=== PATIENT | female | born 1955 | race Caucasian/White ===

== ENCOUNTER 2019-01-10 00:06 | Outpatient (CLI) | payer MEDICARE ==
[2019-01-10 11:25] LABS: #Basophils 0.1 thou/uL (0.0-0.2); #Eosinphils 0.1 thou/uL (0.0-0.7); #Lymphocytes 3.3 thou/uL (1.20-3.40); #Monocytes 0.5 thou/uL (0.11-0.59); #Neutrophils 6.2 thou/uL (1.40-6.50); %Basophils 0.8 % (0.0-1.0); %Eosinophils 1.2 % (0.0-10.0); %Lymphocytes 32.4 % (21.0-51.0); %Monocytes 4.9 % (0.0-10.0); %Neutrophils 60.8 % (42.0-75.0); Hemoglobin 14.4 g/dL (12.0-16.0); Mean Corpuscular HGB CONC 31.9 g/dL (32.0-36.0); Mean Corpuscular Hemoglobin 27.5 pg (27.0-31.0); Mean Corpuscular Volume 86.3 fL (78.0-98.0); Platelet Count 256 thou/uL (130-400); RBC Distribution Width 14.1 % (11.5-14.5); Red Blood Cell (RBC) Count 5.23 mill/uL (4.20-5.40); White Blood Cell (WBC) Count 10.2 thou/uL (4.8-10.8)
[2019-01-10 11:51] LABS: Anion Gap 13 mmol/L (10-20); BUN (Urea Nitrogen) 11 mg/dL (9.8-20.1); Calc. Creatinine Clearance 0 mL/min (70-130); Calcium 10.3 mg/dL (7.8-10.44); Carbon Dioxide 28 mmol/L (23-31); Chloride 102 mmol/L (98-107); Estimated GFR-MDRD 76; Glucose 81 mg/dL (80-115); Potassium 4.6 mmol/L (3.5-5.1); Sodium 138 mmol/L (136-145)
== END 2019-01-10 00:07 | disposition home or self-care (01) ==
LOC: LABBT 00:06
PROVIDERS: ATTEND Surgery
DX: Z01.818 Encounter for other preprocedural examination (principal); K43.2 Incisional hernia without obstruction or gangrene
CPT/HCPCS: 80048; 85025; 93005; 93010

== ENCOUNTER 2019-01-13 05:52 | Day surgery (SDC) | payer MEDICARE ==
[2019-01-10 10:38] VITALS: BMI 39.4
[2019-01-13] MEDS ORDERED: Fentanyl 100 MCG/2 ML VIAL ONE ×2 (06:38→09:05)
[2019-01-13] MEDS ORDERED: Midazolam HCl 2 mg/2 ml Vial ONE ×2 (06:38→06:56)
[2019-01-13] MEDS ORDERED: Bupivacaine/Epinephrine 0.25% 30 ML VIAL ONE (07:18)
[2019-01-13] MEDS ORDERED: Albuterol Sulfate 1.25 MG/3 ML NEB ONE (09:45)
[2019-01-13] MEDS ORDERED: Ondansetron PF 4 MG/2 ML Vial ONE (10:00)
[2019-01-13] MEDS ORDERED: Ketorolac Tromethamine 30 MG/ML VIAL ONE (10:00)
[2019-01-13] MEDS ORDERED: Glycopyrrolate 0.2 MG/ML 5 ML SYRINGE ONE (10:00)
[2019-01-13] MEDS ORDERED: Rocuronium Bromide 10 MG/ML (10ML VIAL) ONE (10:00)
[2019-01-13] MEDS ORDERED: Dexamethasone 20 MG/5 ML VIAL ONE (10:00)
[2019-01-13] MEDS ORDERED: PHENYLEPHRINE-NS 100 MCG/ML 10 ML SYRINGE ONE (10:00)
[2019-01-13] MEDS ORDERED: PROPOFOL 200 MG/20 ML VIAL ONE (10:00)
--- NOTE | 2019-01-13 12:46 | OP ---
DATE OF PROCEDURE: 01/13/2019 PREOPERATIVE DIAGNOSIS: Incisional hernia, multiple. POSTOPERATIVE DIAGNOSIS: Incisional hernia, multiple. PROCEDURE PERFORMED: Laparoscopic da Davin incisional hernia repair with mesh, Ventralex ST 10 x 15 cm. ANESTHESIA: General. ESTIMATED BLOOD LOSS: Minimal. COMPLICATIONS: None. SPECIMENS: None. FINDINGS: Multiple hernias. DESCRIPTION OF PROCEDURE: The patient was taken to the operating room and laid supine on the operating room table. After general anesthetic was obtained, a Devlin was placed. The abdomen was prepped and draped in a sterile fashion. Left subcostal 5-mm Optiview trocar was placed in usual fashion and high-flow pneumoperitoneum was obtained. Left and right abdominal robot 8 trocars were placed and the 5-mm subcostal port switched out to an 11 mm balloon port. All ports were docked to the robot. The adhesions were all taken down and all the hernias were reduced. There was one large wound near the umbilicus, one medium size, one above that. A few small ones superior to that as well. #1 V-Loc was used to primarily close all the defects together. This needle was cut with a small amount of suture remaining. A 10 x 15 cm Ventralex mesh was brought into the sterile field and labelled on its nonadherent side and placed into the abdominal cavity. The exposed mesh portion was placed up against the posterior fascia. The mesh was held up against the posterior abdominal wall using the #1 V-Loc needle. A 2-0 V-Loc was used to sew the mesh along its periphery to the posterior fascia, 2-0 V-Loc was used to do this. All defects were completely closed and completely covered with the overlap of mesh. All needles were removed from the abdomen. There was no bleeding or injury to any intraabdominal structures. All ports were removed under camera visualization after local anesthetic was applied. There was no bleeding. Pneumoperitoneum was let down. 4-0 Monocryl and Dermabond were used to close all the skin incisions. The patient was sent to Recovery in stable condition. All instrument counts, needle counts, and lap counts were correct. Job ID: [id number]
== END 2019-01-13 11:25 | disposition home or self-care (01) ==
LOC: SDC 05:52
PROVIDERS: ATTEND Surgery
PROC: 0WUF4JZ Supplement Abdominal Wall with Synthetic Substitute, Percutaneous Endoscopic Approach (ICD-10-PCS; principal; 2019-01-13)
DX: K43.2 Incisional hernia without obstruction or gangrene (principal); M19.90 Unspecified osteoarthritis, unspecified site; F17.200 Nicotine dependence, unspecified, uncomplicated; Z79.899 Other long term (current) drug therapy
CPT/HCPCS: J0690; J2250; J3010

== ENCOUNTER 2023-08-03 17:18 | Inpatient (IN) | payer MEDICARE ==
[2023-08-03] MEDS ORDERED: Acetaminophen 325 MG TAB PO PRN (20:28)
[2023-08-03] MEDS ORDERED: Ondansetron PF 4 MG/2 ML Vial IVP PRN (20:28)
[2023-08-03] MEDS ORDERED: HYDROcodone/Acetaminophen 5/325 mg Tablet PO PRN (20:28)
[2023-08-03] MEDS ORDERED: Magnesium 2 GM/50 ML(in water) 2 GM in Premix 1 BAG IVPB SCH ×2 (20:30→23:15)
[2023-08-03] MEDS ORDERED: Sodium Chloride 0.9% 1,000 ML IV SCH (20:30)
[2023-08-03] MEDS ORDERED: Famotidine 20 MG TAB PO SCH (21:00)
[2023-08-03] MEDS ORDERED: Ipratropium/Albuterol 3 ML NEB NEB PRN (21:25)
[2023-08-03 22:52] LABS: #Eosinphils 0.1 thou/uL (0.0-0.7); #Monocytes 0.6 thou/uL (0.11-0.59); #Neutrophils 7.4 thou/uL (1.40-6.50); %Basophils 0.2 % (0.0-1.0); %Lymphocytes 19.5 % (21.0-51.0); %Monocytes 6.1 % (0.0-10.0); %Neutrophils 72.8 % (42.0-75.0); Hematocrit 35.7 % (36.0-47.0); Hemoglobin 11.8 g/dL (12.0-16.0); Mean Corpuscular HGB CONC 33.1 g/dL (32.0-36.0); Mean Corpuscular Hemoglobin 27.8 pg (27.0-31.0); Mean Corpuscular Volume 84.2 fl (78.0-98.0); Mean Platelet Volume 10.3 fL (7.4-10.4); Platelet Count 252 10x3/uL (130-400); RBC Distribution Width 17.1 % (11.5-14.5); Red Blood Cell (RBC) Count 4.24 mill/uL (4.20-5.40); White Blood Cell (WBC) Count 10.1 10x3/uL (4.8-10.8)
[2023-08-03] MEDS: Bacitracin 1 PK TOP SCH (23:11)
[2023-08-03] MEDS: Heparin 5,000 UNITS/ML VIAL SC SCH (23:11)
[2023-08-03] MEDS: Loperamide HCl 2 MG CAP PO SCH (23:11)
[2023-08-03 23:19] LABS: ALT (SGPT) 10 U/L (8-55); AST (SGOT) 13 U/L (5-34); Albumin 4.5 g/dL (3.4-4.8); Alkaline Phosphatase 73 U/L (40-110); Anion Gap 22 mmol/L (10-20); BUN (Urea Nitrogen) 42 mg/dL (9.8-20.1); Bilirubin, Total 0.3 mg/dL (0.2-1.2); Calc. Creatinine Clearance 0 mL/min (70-130); Calcium 9.2 mg/dL (7.8-10.44); Carbon Dioxide 10 mmol/L (23-31); Chloride 100 mmol/L (98-107); Estimated GFR 8; Globulin 2.7 g/dL (2.4-3.5); Glucose 93 mg/dL (80-115); Potassium 3.8 mmol/L (3.5-5.1); Protein, Total 7.2 g/dL (5.8-8.1); Sodium 128 mmol/L (136-145)
[2023-08-03 23:24] LABS: Troponin I 0.012 ng/mL (< 0.028)
[2023-08-04] MEDS: Sodium Bicarbonate 150 MEQ in Dextrose 5% in Water 1,000 ML IV SCH ×2 (00:44→09:18)
[2023-08-04 01:51] VITALS: BMI 30.3
[2023-08-04 04:14] LABS: #Eosinphils 0.1 thou/uL (0.0-0.7); #Monocytes 0.5 thou/uL (0.11-0.59); #Neutrophils 5.1 thou/uL (1.40-6.50); %Basophils 0.3 % (0.0-1.0); %Eosinophils 1.8 % (0.0-10.0); %Lymphocytes 22.2 % (21.0-51.0); %Monocytes 6.6 % (0.0-10.0); %Neutrophils 68.6 % (42.0-75.0); Hematocrit 29.3 % (36.0-47.0); Hemoglobin 9.9 g/dL (12.0-16.0); Mean Corpuscular HGB CONC 33.8 g/dL (32.0-36.0); Mean Corpuscular Hemoglobin 28.4 pg (27.0-31.0); Mean Platelet Volume 11.3 fL (7.4-10.4); Platelet Count 252 10x3/uL (130-400); RBC Distribution Width 16.9 % (11.5-14.5); Red Blood Cell (RBC) Count 3.49 mill/uL (4.20-5.40); White Blood Cell (WBC) Count 7.4 10x3/uL (4.8-10.8)
[2023-08-04 04:19] LABS: Base Excess -9.4 mEq/L (-2.0 to +3.0); Calcium, Ionized (venous) 0.99 mmol/L (1.16-1.32); Chloride (VBG) 98 mmol/L (98-106); Hematocrit-VBG 33 % (36.0-47.0); Hemoglobin (Hb) 11.2 g/dL (11.7-16.1); Potassium (VBG) 3.34 mmol/L (3.70-5.30); Sodium 125 mmol/L (133-146); pH (venous) 7.382 (7.32-7.43)
[2023-08-04 04:21] LABS: Actual Bicarbonate (HCO3v) 14.1 mEq/L (22-28)
[2023-08-04 04:37] LABS: ALT (SGPT) 10 U/L (8-55); AST (SGOT) 10 U/L (5-34); Albumin 3.6 g/dL (3.4-4.8); Alkaline Phosphatase 57 U/L (40-110); Anion Gap 19 mmol/L (10-20); BUN (Urea Nitrogen) 41 mg/dL (9.8-20.1); Bilirubin, Total 0.2 mg/dL (0.2-1.2); Calc. Creatinine Clearance 13 mL/min (70-130); Calcium 8.1 mg/dL (7.8-10.44); Carbon Dioxide 13 mmol/L (23-31); Chloride 99 mmol/L (98-107); Estimated GFR 8; Globulin 2.6 g/dL (2.4-3.5); Glucose 124 mg/dL (80-115); Potassium 3.3 mmol/L (3.5-5.1); Protein, Total 6.2 g/dL (5.8-8.1); Sodium 128 mmol/L (136-145)
[2023-08-04] MEDS: Loperamide HCl 2 MG CAP PO SCH ×3 (09:19→21:29)
[2023-08-04] MEDS: Bacitracin 1 PK TOP SCH ×3 (09:19→21:32)
[2023-08-04] MEDS: Heparin 5,000 UNITS/ML VIAL SC SCH ×3 (09:38→21:32)
[2023-08-04] MEDS ORDERED: ADMIXTURE FEE FS SCH (10:00)
[2023-08-04] MEDS ORDERED: SODIUM CHLORIDE FS SCH (10:00)
[2023-08-04] MEDS ORDERED: SODIUM BICARBONATE FS SCH (10:00)
[2023-08-04 11:26] LABS: Campy jejuni + coli by PCR Negative (Negative); STEC Shiga Toxin 1+2 Negative (Negative); Salmonella spp. by PCR Negative (Negative); Shigella spp + EIEC by PCR Negative (Negative)
[2023-08-04] MEDS: Potassium Bicarbonate/Cit Ac 20 MEQ TAB PO SCH ×2 (13:26→22:04)
[2023-08-04] MEDS: ADMIXTURE FEE IV SCH ×2 (13:27→22:04)
[2023-08-04] MEDS: SODIUM BICARBONATE IV SCH ×2 (13:27→22:04)
[2023-08-04] MEDS: SODIUM CHLORIDE IV SCH ×2 (13:27→22:04)
[2023-08-04] MEDS ORDERED: Potassium Chloride 20 MEQ TAB PO SCH (19:15)
[2023-08-05] MEDS: SODIUM BICARBONATE IV SCH ×4 (02:01→21:36)
[2023-08-05] MEDS: ADMIXTURE FEE IV SCH ×4 (02:01→21:36)
[2023-08-05] MEDS: SODIUM CHLORIDE IV SCH ×4 (02:01→21:36)
[2023-08-05 07:00] LABS: #Eosinphils 0.1 thou/uL (0.0-0.7); #Monocytes 0.5 thou/uL (0.11-0.59); #Neutrophils 3.8 thou/uL (1.40-6.50); %Basophils 0.3 % (0.0-1.0); %Eosinophils 2.2 % (0.0-10.0); %Lymphocytes 31.1 % (21.0-51.0); %Monocytes 7.3 % (0.0-10.0); %Neutrophils 58.5 % (42.0-75.0); Hematocrit 26.5 % (36.0-47.0); Hemoglobin 9.1 g/dL (12.0-16.0); Mean Corpuscular HGB CONC 34.3 g/dL (32.0-36.0); Mean Corpuscular Hemoglobin 28.1 pg (27.0-31.0); Mean Corpuscular Volume 81.8 fl (78.0-98.0); Mean Platelet Volume 10.3 fL (7.4-10.4); Platelet Count 207 10x3/uL (130-400); Red Blood Cell (RBC) Count 3.24 mill/uL (4.20-5.40); White Blood Cell (WBC) Count 6.5 10x3/uL (4.8-10.8)
[2023-08-05 08:09] LABS: Anion Gap 19 mmol/L (10-20); BUN (Urea Nitrogen) 41 mg/dL (9.8-20.1); Calc. Creatinine Clearance 15 mL/min (70-130); Calcium 8.4 mg/dL (7.8-10.44); Carbon Dioxide 20 mmol/L (23-31); Chloride 95 mmol/L (98-107); Estimated GFR 10; Glucose 87 mg/dL (80-115); Magnesium 1.9 mg/dL (1.6-2.6); Potassium 3.4 mmol/L (3.5-5.1); Sodium 131 mmol/L (136-145)
[2023-08-05] MEDS: Heparin 5,000 UNITS/ML VIAL SC SCH ×3 (08:59→21:32)
[2023-08-05] MEDS: Bacitracin 1 PK TOP SCH ×3 (09:00→21:35)
[2023-08-05] MEDS: Loperamide HCl 2 MG CAP PO SCH ×4 (09:00→21:45)
[2023-08-05] MEDS ORDERED: Sodium Chloride 0.9% 1,000 ML IV SCH (10:30)
[2023-08-05] MEDS: Potassium Bicarbonate/Cit Ac 20 MEQ TAB PO SCH ×2 (12:53→17:07)
[2023-08-05] MEDS ORDERED: Famotidine 20 MG TAB PO SCH (21:00)
[2023-08-05] MEDS: Cholestyramine/Aspartame 4 gm Packet PO SCH (21:35)
[2023-08-06] MEDS: SODIUM BICARBONATE IV SCH ×2 (05:15→11:47)
[2023-08-06] MEDS: ADMIXTURE FEE IV SCH ×2 (05:15→11:47)
[2023-08-06] MEDS: Loperamide HCl 2 MG CAP PO SCH ×2 (05:15→11:46)
[2023-08-06] MEDS: SODIUM CHLORIDE IV SCH ×2 (05:15→11:47)
[2023-08-06 05:36] LABS: #Eosinphils 0.1 thou/uL (0.0-0.7); #Monocytes 0.4 thou/uL (0.11-0.59); #Neutrophils 3.2 thou/uL (1.40-6.50); %Basophils 0.2 % (0.0-1.0); %Eosinophils 2.3 % (0.0-10.0); %Lymphocytes 35.3 % (21.0-51.0); %Monocytes 7.1 % (0.0-10.0); %Neutrophils 54.8 % (42.0-75.0); Hematocrit 26.5 % (36.0-47.0); Hemoglobin 8.8 g/dL (12.0-16.0); Mean Corpuscular HGB CONC 33.2 g/dL (32.0-36.0); Mean Corpuscular Hemoglobin 28.1 pg (27.0-31.0); Mean Platelet Volume 10.5 fL (7.4-10.4); Platelet Count 191 10x3/uL (130-400); RBC Distribution Width 17.7 % (11.5-14.5); Red Blood Cell (RBC) Count 3.13 mill/uL (4.20-5.40); White Blood Cell (WBC) Count 5.8 10x3/uL (4.8-10.8)
[2023-08-06 05:55] LABS: Anion Gap 12 mmol/L (10-20); BUN (Urea Nitrogen) 33 mg/dL (9.8-20.1); Calc. Creatinine Clearance 23 mL/min (70-130); Calcium 8.3 mg/dL (7.8-10.44); Carbon Dioxide 28 mmol/L (23-31); Chloride 102 mmol/L (98-107); Estimated GFR 17; Glucose 78 mg/dL (80-115); Potassium 3.6 mmol/L (3.5-5.1); Sodium 138 mmol/L (136-145)
[2023-08-06 06:04] LABS: Mean Corpuscular Volume 84.7 fl (78.0-98.0)
[2023-08-06] MEDS: Bacitracin 1 PK TOP SCH ×2 (10:10→15:37)
[2023-08-06] MEDS: Heparin 5,000 UNITS/ML VIAL SC SCH ×2 (10:10→15:37)
[2023-08-06] MEDS: Cholestyramine/Aspartame 4 gm Packet PO SCH (10:10)
[2023-08-06 12:31] VITALS: BP 92/54; TEMP 97.6
== END 2023-08-06 15:40 | disposition home or self-care (01) | DRG 683 ==
LOC: INTOOBSV 19:27 → 2NO 19:27 → OBSVTOIN 08-04 08:31 → SJJU 08-04 20:21
PROVIDERS: ADMIT Internal Medicine; ATTEND Internal Medicine
DX: N17.9 Acute kidney failure, unspecified (principal); E87.1 Hypo-osmolality and hyponatremia; E87.20 Acidosis, unspecified; N39.0 Urinary tract infection, site not specified; G62.9 Polyneuropathy, unspecified; K21.9 Gastro-esophageal reflux disease without esophagitis; F17.210 Nicotine dependence, cigarettes, uncomplicated; E78.5 Hyperlipidemia, unspecified; E86.0 Dehydration; E87.6 Hypokalemia; E66.9 Obesity, unspecified; D63.1 Anemia in chronic kidney disease; N18.30 Chronic kidney disease, stage 3 unspecified; I95.9 Hypotension, unspecified; E86.9 Volume depletion, unspecified; I12.9 Hypertensive chronic kidney disease with stage 1 through stage 4 chronic kidney disease, or unspecified chronic kidney disease; Z68.30 Body mass index [BMI] 30.0-30.9, adult
CPT/HCPCS: 36415; 36416; 74176; 80048; 80053; 82805; 83735; 85025; 87040; 87086; 87505; 97139; J1644; J3475; J7050; J7070